=== PATIENT | male | born 1995 | race Caucasian/White ===

== ENCOUNTER 2017-11-12 23:13 | Emergency (ER) | payer OTHER ==
[~2017-11-12] VITALS: Ht 182.9 cm; Wt 75.0 kg
[2017-11-12] MEDS ORDERED: KETOROLAC 30 MG/1 ML IVPush ONE (23:30)
[2017-11-12] MEDS ORDERED: PROCHLORPERAZINE 5 MG/ML, 2ML IVPush ONE (23:30)
[2017-11-12] MEDS ORDERED: DIPHENHYDRAMINE 50 MG/ML, 1ML IVPush ONE (23:30)
[2017-11-12] MEDS ORDERED: PROCHLORPERAZINE 5 MG/ML, 2ML ONE (23:38)
[2017-11-12] MEDS ORDERED: DIPHENHYDRAMINE 50 MG/ML, 1ML ONE (23:38)
[2017-11-12] MEDS ORDERED: KETOROLAC 30 MG/1 ML ONE (23:38)
[2017-11-13 01:01] VITALS: BP 107/70
== END 2017-11-13 01:10 | disposition home or self-care (01) ==
LOC: ED 23:59
DX: G44.019 Episodic cluster headache, not intractable (principal); F17.200 Nicotine dependence, unspecified, uncomplicated
CPT/HCPCS: 96374; 96375; 99284; J0780; J1200; J1885

== ENCOUNTER 2021-02-21 13:48 | Emergency (ER) | payer MEDICAID, OTHER ==
[~2021-02-21] VITALS: Ht 190.5 cm; Wt 85.8 kg
[2021-02-21 13:52] VITALS: BP 135/81
== END 2021-02-21 14:23 | disposition home or self-care (01) ==
LOC: ED 14:00
DX: K02.9 Dental caries, unspecified (principal); K08.89 Other specified disorders of teeth and supporting structures
CPT/HCPCS: 99283